=== PATIENT | male | born 1970 | race Native Hawaiian/Other Pacific Islander ===

== ENCOUNTER 2016-10-13 17:58 | Emergency (ER) | payer OTHER ==
[~2016-10-13] VITALS: Ht 172.7 cm; Wt 81.8 kg
[~2016-10-13 17:58] MED LIST: BUDE90AE IH; IPRA0.2S54 IH; LEVA1.25 IH
[2016-10-13] MEDS ORDERED: FLUT1BLS PO (18:15)
[2016-10-13] MEDS ORDERED: AMLO-511 PO (18:15)
[2016-10-13] MEDS ORDERED: ASPI-556 PO (18:15)
[2016-10-13] MEDS ORDERED: PANT40TA25 PO (18:15)
[2016-10-13] MEDS ORDERED: PRED20 PO (18:15)
[2016-10-13] MEDS ORDERED: MIRT30 PO (18:15)
[2016-10-13] MEDS ORDERED: SULF1TAB42 PO (18:15)
[2016-10-13] MEDS ORDERED: QUET25TA PO (18:15)
[2016-10-13] MEDS ORDERED: MONT10TA21 PO (18:15)
[2016-10-13] MEDS ORDERED: LORazepam 2 MG TABLET PO ONE (18:30)
[2016-10-13 18:36] LABS: BASOPHILS % (AUTO) 0.3 % (0.0-2.0); EOSINOPHILS % (AUTO) 0 % (1.0-6.0); HEMATOCRIT 39.6 % (41-53); HEMOGLOBIN 13.3 g/dL (13.5-17.5); LYMPHOCYTES # (AUTO) 0.5 K/uL (1.0-4.8); LYMPHOCYTES % (AUTO) 2.8 % (22.0-44.0); MEAN CORPUSCULAR HGB CONC 33.6 G/dL (31.0-37.0); MEAN CORPUSCULAR VOLUME 89 fL (80-100); NEUTROPHILS # (AUTO) 17.6 K/uL (1.8-7.7); PLATELET COUNT (AUTO) 244 K/uL (150-450); RED BLOOD CELL COUNT(AUTO) 4.43 MIL/uL (4.50-5.90); WHITE BLOOD COUNT (AUTO) 19.1 K/uL (4.5-11.0)
[2016-10-13 18:37] LABS: NEUTROPHILS % (AUTO) 91.9 % (40.0-70.0)
[2016-10-13 18:46] LABS: ANION GAP 12 mmol/L (8-16); CALCIUM, TOTAL 8.2 mg/dL (8.8-10.5); CARBON DIOXIDE 22 mmol/L (22-29); CHLORIDE 101 mmol/L (98-107); CREATININE 1.34 mg/dL (0.60-1.30); GLOMERULAR FILTR. RATE CALC 57 mL/min (>60); SODIUM SERUM 135 mmol/L (136-145); UREA NITROGEN, BLOOD 25 mg/dL (7-18)
[2016-10-13 18:52] LABS: ALANINE AMINOTRANSFERASE 62 U/L (12-78); ASPARTATE AMINOTRANSFERASE 29 U/L (15-37); TOTAL PROTEIN, SERUM 6.1 g/dL (6.4-8.2)
[2016-10-13 19:10] LABS: RBC MORPHOLOGY COMMENT NORMAL RBC MORPH
[2016-10-13 20:57] VITALS: BP 140/70
== END 2016-10-13 20:59 | disposition home or self-care (01) ==
LOC: EMS 18:00
DX: F29 Unspecified psychosis not due to a substance or known physiological condition (principal); D72.829 Elevated white blood cell count, unspecified; F12.10 Cannabis abuse, uncomplicated; F15.10 Other stimulant abuse, uncomplicated; J44.9 Chronic obstructive pulmonary disease, unspecified; J45.909 Unspecified asthma, uncomplicated
CPT/HCPCS: 36415; 80053; 80307; 85025; 99284; G0480

== ENCOUNTER 2016-10-13 22:52 | Emergency (ER) | payer OTHER ==
[~2016-10-13] VITALS: Ht 172.7 cm; Wt 90.9 kg
[~2016-10-13 22:52] MED LIST changes: +AMLO-511 PO; +ASPI-556 PO; +FLUT1BLS PO; +MIRT30 PO; +MONT10TA21 PO; +PANT40TA25 PO; +PRED20 PO; +QUET25TA PO; +SULF1TAB42 PO
[2016-10-13 23:11] LABS: GLUCOSE,POINT OF CARE 99 MG/DL (70-110)
[2016-10-14] MEDS ORDERED: HALOPERIDOL LACTATE 5 MG/ML VIAL IM ONE (01:30)
[2016-10-14 05:12] VITALS: BP 137/73
== END 2016-10-14 05:45 | disposition home or self-care (01) ==
LOC: EMS 22:53
DX: F41.9 Anxiety disorder, unspecified (principal); F29 Unspecified psychosis not due to a substance or known physiological condition; F20.9 Schizophrenia, unspecified; F19.10 Other psychoactive substance abuse, uncomplicated; J45.909 Unspecified asthma, uncomplicated; J44.9 Chronic obstructive pulmonary disease, unspecified; Z79.82 Long term (current) use of aspirin
CPT/HCPCS: 82962; 96372; 99284; J1630

== ENCOUNTER 2017-01-04 18:50 | Inpatient (IN) | payer OTHER ==
[~2017-01-04] VITALS: Ht 172.7 cm; Wt 80.1 kg
[2017-01-04] MEDS ORDERED: MethylPREDNISolone SOD SUCC 125 MG/2 ML VIAL IVP ONE (19:15)
[2017-01-04] MEDS ORDERED: IPRATROPIUM BROMIDE 0.5 MG/2.5 ML NEB SOLUTION NEB ONE (19:15)
[2017-01-04] MEDS ORDERED: ALBUTEROL SULFATE 5 MG/ML 20 ML NEB SOLN [BULK] NEB ONE (19:15)
[2017-01-04 19:37] LABS: BASOPHILS % (AUTO) 0.6 % (0.0-2.0); EOSINOPHILS % (AUTO) 0.2 % (1.0-6.0); HEMATOCRIT 45.6 % (41-53); HEMOGLOBIN 14.7 g/dL (13.5-17.5); LYMPHOCYTES # (AUTO) 2.5 K/uL (1.0-4.8); LYMPHOCYTES % (AUTO) 10.6 % (22.0-44.0); MEAN CORPUSCULAR HEMOGLOBIN 28.5 pg (26.0-34.0); MEAN CORPUSCULAR HGB CONC 32.1 G/dL (31.0-37.0); MEAN CORPUSCULAR VOLUME 89 fL (80-100); MONOCYTES # (AUTO) 1.8 K/uL (0.1-1.0); MONOCYTES % (AUTO) 7.7 % (2.0-9.0); NEUTROPHILS % (AUTO) 80.9 % (40.0-70.0); PLATELET COUNT (AUTO) 353 K/uL (150-450); RED BLOOD CELL COUNT(AUTO) 5.14 MIL/uL (4.50-5.90); RED CELL DISTRIBUTION WIDTH 15.9 % (11.5-14.5); WHITE BLOOD COUNT (AUTO) 23.5 K/uL (4.5-11.0)
[2017-01-04 19:57] LABS: ANION GAP 15 mmol/L (8-16); CALCIUM, TOTAL 9.1 mg/dL (8.8-10.5); CARBON DIOXIDE 21 mmol/L (22-29); CHLORIDE 101 mmol/L (98-107); CREATININE 1.76 mg/dL (0.60-1.30); GLOMERULAR FILTR. RATE CALC 42 mL/min (>60); POTASSIUM 3.8 mmol/L (3.5-5.1); SODIUM SERUM 137 mmol/L (136-145); UREA NITROGEN, BLOOD 30 mg/dL (7-18)
[2017-01-04 20:03] LABS: ALANINE AMINOTRANSFERASE 44 U/L (12-78); ALBUMIN 3.4 g/dL (3.4-5.0); ASPARTATE AMINOTRANSFERASE 27 U/L (15-37); BILIRUBIN,TOTAL 0.6 mg/dL (0.1-1.0); TOTAL PROTEIN, SERUM 7.1 g/dL (6.4-8.2)
[2017-01-04 20:12] LABS: LACTIC ACID 2.2 mmol/L (0.4-2.0)
[2017-01-04 21:33] LABS: REFLEX LACTIC ACID? YES YES
[2017-01-04] MEDS ORDERED: CefTRIAXone 1 GM/DEXTROSE 50 ML IV ONE (22:15)
[2017-01-04] MEDS ORDERED: ONDANSETRON HCL 4 MG/2 ML VIAL IVP PRN (22:30)
[2017-01-04] MEDS ORDERED: SODIUM CHLORIDE 0.9% 2,000 ML IV ONE (22:30)
[2017-01-04] MEDS ORDERED: 0.9% SODIUM CHLORIDE 10 ML SYRINGE IVP PRN (22:30)
[2017-01-04] MEDS ORDERED: ACETAMINOPHEN 325 MG TABLET PO PRN ×2 (22:30→23:45)
[2017-01-04] MEDS ORDERED: ALBUTEROL SULFATE 2.5 MG/0.5 ML NEB SOLUTION NEB SCH (23:00)
[2017-01-04] MEDS ORDERED: IPRATROPIUM BROMIDE 0.5 MG/2.5 ML NEB SOLUTION NEB SCH (23:00)
[2017-01-04] MEDS: OXYGEN THERAPY IH SCH (23:08)
[2017-01-04] MEDS ORDERED: IPRATROPIUM BROMIDE 0.5 MG/2.5 ML NEB SOLUTION NEB PRN (23:45)
[2017-01-04] MEDS ORDERED: LIDOCAINE HCL/PF 1% 2 ML VIAL IM ONE (23:45)
[2017-01-04] MEDS ORDERED: ACETAMINOPHEN 650 MG/20.3 ML SOLUTION UDCUP PO PRN (23:45)
[2017-01-04] MEDS ORDERED: HYDROCODONE/ACETAMINOPHEN 5-325 MG TABLET PO PRN (23:45)
[2017-01-05] VITALS (7 sets, daily range): BP systolic 124–160; BP diastolic 77–94
[2017-01-05] MEDS: MethylPREDNISolone SOD SUCC 125 MG/2 ML VIAL IVP SCH ×3 (00:30→12:00)
[2017-01-05 01:17] LABS: APPEARANCE,URINE CLEAR (CLEAR); GLUCOSE, URINE (UA) NEGATIVE (NEGATIVE); KETONES,URINE NEGATIVE (NEGATIVE); LEUKOCYTE ESTERASE ,URINE NEGATIVE (NEGATIVE); OCCULT BLOOD,URINE NEGATIVE (NEGATIVE); PROTEIN,URINE TRACE (NEGATIVE)
[2017-01-05 01:29] LABS: FINE GRANULAR CASTS,URINE 0-2 /LPF (None Seen); SQUAMOUS EPITHELIAL CELL,UR Few /LPF (None Seen)
[2017-01-05 01:30] LABS: RBC,URINE 0-2 /HPF (0-2)
[2017-01-05] MEDS ORDERED: DEXTROSE 50%-WATER 25 GM/50 ML SYRINGE IVP PRN (01:45)
[2017-01-05] MEDS ORDERED: INSULIN ASPART 100 UNITS/ML SQ PRN (01:45)
[2017-01-05] MEDS ORDERED: PNEUMOCOCCAL VACCINE POLYVALENT 0.5 ML VIAL [PPSV23] IM ONE (03:00)
[2017-01-05] MEDS ORDERED: -PHARMACY VACCINE NOTE- MISC ONE ×2 (03:00)
[2017-01-05] MEDS: IPRATROPIUM BROMIDE 0.5 MG/2.5 ML NEB SOLUTION NEB SCH ×6 (04:21→23:07)
[2017-01-05] MEDS: ALBUTEROL SULFATE 2.5 MG/0.5 ML NEB SOLUTION NEB SCH ×6 (04:21→23:07)
[2017-01-05 06:36] LABS: EOSINOPHILS % (AUTO) 0 % (1.0-6.0); HEMATOCRIT 45.3 % (41-53); HEMOGLOBIN 14.5 g/dL (13.5-17.5); LYMPHOCYTES # (AUTO) 3.4 K/uL (1.0-4.8); MEAN CORPUSCULAR HEMOGLOBIN 28.8 pg (26.0-34.0); MEAN CORPUSCULAR HGB CONC 32.1 G/dL (31.0-37.0); MEAN CORPUSCULAR VOLUME 90 fL (80-100); MONOCYTES # (AUTO) 0.4 K/uL (0.1-1.0); MONOCYTES % (AUTO) 1.6 % (2.0-9.0); NEUTROPHILS # (AUTO) 18.7 K/uL (1.8-7.7); NEUTROPHILS % (AUTO) 83.4 % (40.0-70.0); PLATELET COUNT (AUTO) 361 K/uL (150-450); RED BLOOD CELL COUNT(AUTO) 5.04 MIL/uL (4.50-5.90); RED CELL DISTRIBUTION WIDTH 16.2 % (11.5-14.5); WHITE BLOOD COUNT (AUTO) 22.4 K/uL (4.5-11.0)
[2017-01-05 06:54] LABS: ALBUMIN 3.4 g/dL (3.4-5.0); BILIRUBIN,TOTAL 0.5 mg/dL (0.1-1.0); CALCIUM, TOTAL 8.9 mg/dL (8.8-10.5); CREATININE 1.49 mg/dL (0.60-1.30); POTASSIUM 4.8 mmol/L (3.5-5.1); TOTAL PROTEIN, SERUM 7.6 g/dL (6.4-8.2)
[2017-01-05] MEDS ORDERED: CefTRIAXone SODIUM 1 GM/VIAL IM ONE (09:00)
[2017-01-05] MEDS: PANTOPRAZOLE SODIUM 40 MG DR TABLET PO SCH (11:30)
[2017-01-05] MEDS: ENOXAPARIN SODIUM 40 MG/0.4 ML PF SYRINGE SQ SCH (11:30)
[2017-01-05] MEDS: DOXYCYCLINE 100 MG CAPSULE PO SCH ×2 (11:30→20:45)
[2017-01-05] MEDS: NICOTINE 14 MG/24 HOUR PATCH TD SCH (11:30)
[2017-01-05] MEDS: OXYGEN THERAPY IH SCH ×2 (11:31→20:46)
[2017-01-05] MEDS ORDERED: 0.9% SODIUM CHLORIDE 10 ML SYRINGE IVP PRN (14:30)
[2017-01-05] MEDS ORDERED: PredniSONE 20 MG TABLET PO ONE (16:15)
[2017-01-05] MEDS ORDERED: CefTRIAXone 1 GM/DEXTROSE 50 ML IV SCH (23:00)
[2017-01-06] MEDS ORDERED: 0.9% SODIUM CHLORIDE 5 ML NEB SOLUTION NEB ONE (02:41)
[2017-01-06] MEDS: IPRATROPIUM BROMIDE 0.5 MG/2.5 ML NEB SOLUTION NEB SCH ×6 (02:42→23:48)
[2017-01-06] MEDS: ALBUTEROL SULFATE 2.5 MG/0.5 ML NEB SOLUTION NEB SCH ×6 (02:42→23:48)
[2017-01-06 04:30] VITALS: BP 149/100
[2017-01-06 08:32] VITALS: BP 163/89
[2017-01-06] MEDS: ENOXAPARIN SODIUM 40 MG/0.4 ML PF SYRINGE SQ SCH (09:00)
[2017-01-06] MEDS: PANTOPRAZOLE SODIUM 40 MG DR TABLET PO SCH (09:57)
[2017-01-06] MEDS: DOXYCYCLINE 100 MG CAPSULE PO SCH ×2 (09:57→22:27)
[2017-01-06] MEDS: PredniSONE 20 MG TABLET PO SCH (09:57)
[2017-01-06] MEDS: NICOTINE 14 MG/24 HOUR PATCH TD SCH (09:57)
[2017-01-06] MEDS: OXYGEN THERAPY IH SCH ×2 (09:58→22:27)
[2017-01-06 17:27] VITALS: BP 170/102
[2017-01-06 21:03] VITALS: BP 120/83
[2017-01-07 00:05] VITALS: BP 163/90
[2017-01-07] MEDS: LORazepam 2 MG TABLET PO PRN ×2 (00:06→10:46)
[2017-01-07] MEDS: ALBUTEROL SULFATE 2.5 MG/0.5 ML NEB SOLUTION NEB SCH ×3 (03:00→11:34)
[2017-01-07] MEDS: IPRATROPIUM BROMIDE 0.5 MG/2.5 ML NEB SOLUTION NEB SCH ×3 (03:00→11:34)
[2017-01-07 07:38] VITALS: BP 138/76
[2017-01-07] MEDS: OXYGEN THERAPY IH SCH (08:00)
[2017-01-07] MEDS: PredniSONE 20 MG TABLET PO SCH ×2 (08:51→10:46)
[2017-01-07] MEDS: ENOXAPARIN SODIUM 40 MG/0.4 ML PF SYRINGE SQ SCH (08:52)
[2017-01-07] MEDS: DOXYCYCLINE 100 MG CAPSULE PO SCH ×2 (08:52→10:46)
[2017-01-07] MEDS: PANTOPRAZOLE SODIUM 40 MG DR TABLET PO SCH ×2 (08:52→10:46)
[2017-01-07] MEDS: NICOTINE 14 MG/24 HOUR PATCH TD SCH ×2 (08:52→10:47)
[2017-01-07 11:33] VITALS: BP 148/104
[2017-01-10 19:07] LABS: GLUCOSE,POINT OF CARE 151 MG/DL (70-110)
[2017-01-19 06:29] LABS: GLUCOSE,POINT OF CARE 63 MG/DL (70-110)
== END 2017-01-07 15:21 | disposition expired | DRG 720 ==
LOC: EMS 18:51 → 5S 23:42
PROVIDERS: ADMIT Internal Medicine; ATTEND Internal Medicine
PROC: 5A12012 Performance of Cardiac Output, Single, Manual (ICD-10-PCS; principal; 2017-01-07)
DX: A41.9 Sepsis, unspecified organism (principal); N17.9 Acute kidney failure, unspecified; J18.0 Bronchopneumonia, unspecified organism; J44.1 Chronic obstructive pulmonary disease with (acute) exacerbation; E11.22 Type 2 diabetes mellitus with diabetic chronic kidney disease; E11.9 Type 2 diabetes mellitus without complications; D72.829 Elevated white blood cell count, unspecified; I12.9 Hypertensive chronic kidney disease with stage 1 through stage 4 chronic kidney disease, or unspecified chronic kidney disease; R65.10 Systemic inflammatory response syndrome (SIRS) of non-infectious origin without acute organ dysfunction; I46.9 Cardiac arrest, cause unspecified; F20.9 Schizophrenia, unspecified; F17.210 Nicotine dependence, cigarettes, uncomplicated; F12.90 Cannabis use, unspecified, uncomplicated; F19.10 Other psychoactive substance abuse, uncomplicated; Z53.29 Procedure and treatment not carried out because of patient's decision for other reasons; J45.909 Unspecified asthma, uncomplicated; N18.9 Chronic kidney disease, unspecified; Z28.21 Immunization not carried out because of patient refusal
CPT/HCPCS: 76770; 80307; 82962; 83605; 87040; 87081; 90471; 92950; 93005; 94640; 96365; 96375; 99285; J0696; J1650; J2930; J7030